=== PATIENT | male | born 1955 | race Caucasian/White ===

== ENCOUNTER 2018-12-09 10:26 | Day surgery (SDC) | payer OTHER ==
[2018-12-09] MEDS ORDERED: PROPOFOL 40 ML (11:19)
== END 2018-12-09 12:53 | disposition home or self-care (01) ==
LOC: GIL 10:26
DX: R19.4 Change in bowel habit (principal); K64.8 Other hemorrhoids; K44.9 Diaphragmatic hernia without obstruction or gangrene; K21.9 Gastro-esophageal reflux disease without esophagitis; K29.30 Chronic superficial gastritis without bleeding
CPT/HCPCS: 43239; 88305; 88312